=== PATIENT | female | born 1960 | race Caucasian/White ===

== ENCOUNTER 2024-10-16 09:18 | Day surgery (SDC) | payer MEDICARE, OTHER ==
[~2024-10-16] VITALS: Ht 167.6 cm; Wt 98.4 kg
[~2024-10-16 09:18] MED LIST: ENJUVIA; HYDACE5 PO; IBUP800 PO; Lactated Ringer's 1,000 ML IV ONE; SIMV5 PO; ZOLP5 PO; [UNRECOGNIZED DRUG - CODE]; propofoL 50 ML IV ONE
[2024-10-16] MEDS ORDERED: ATOR20 (10:11)
[2024-10-16] MEDS ORDERED: ACET325 (10:11)
[2024-10-16] MEDS ORDERED: ESTRADIOL1 MG (10:26)
[2024-10-16] MEDS ORDERED: LEVSOD100 (10:27)
[2024-10-16] MEDS ORDERED: HYDCHL25 (10:27)
[2024-10-16] MEDS ORDERED: MELO7.5 PO (10:27)
[2024-10-16] MEDS ORDERED: OLME20 PO (10:28)
[2024-10-16] MEDS ORDERED: OZEMPIC0.25 MG/02 (10:29)
[2024-10-16] MEDS ORDERED: PRAM.125 (10:30)
[2024-10-16] MEDS ORDERED: Lactated Ringer's 1,000 ML IV ONE (11:44)
[2024-10-16] MEDS ORDERED: propofoL 50 ML IV ONE (12:42)
[2024-10-16 13:05] VITALS: BP 120/80
== END 2024-10-16 13:06 | disposition home or self-care (01) ==
LOC: ORSCSDS 09:18
PROVIDERS: Internal Medicine Gastroenterology
PROC: 0DJD8ZZ Inspection of Lower Intestinal Tract, Via Natural or Artificial Opening Endoscopic (ICD-10-PCS; principal; 2024-10-16 11:00)
DX: Z12.11 Encounter for screening for malignant neoplasm of colon (principal); R19.5 Other fecal abnormalities; Z86.0100 Personal history of colon polyps, unspecified; K57.30 Diverticulosis of large intestine without perforation or abscess without bleeding; R10.13 Epigastric pain; E07.9 Disorder of thyroid, unspecified; Z87.19 Personal history of other diseases of the digestive system; Z79.85 Long-term (current) use of injectable non-insulin antidiabetic drugs; Z79.899 Other long term (current) drug therapy
CPT/HCPCS: J2704; J7120